=== PATIENT | male | born 1980 | race Caucasian/White ===

== ENCOUNTER 2022-01-22 11:51 | Inpatient (IN) ==
[2022-01-22] MEDS ORDERED: SODIUM CHLORIDE 0.9% 1,000 ML IV STA (12:40)
[2022-01-22] MEDS ORDERED: ONDANSETRON 4 MG/2 ML VIAL IV STA (12:40)
[2022-01-22 13:16] LABS: Basophils % 0.4 % (0.0-0.8); Eosinophils # 0.1 10*3/uL (0.0-0.87); Hemoglobin 14.4 GM/DL (14.0-18.0); Monocytes % 12.1 % (1.7-12.7); White Blood Count 7.4 T/CUMM (4-12)
[2022-01-22 13:35] LABS: Albumin 2.8 G/DL (3.4-5.0); Bilirubin,Total 0.9 MG/DL (0.20-1.00); Calcium 8.3 MG/DL (8.5-10.1); Osmolality,Calculated 270.8 MOS/KG (273-304); Potassium 3.2 MMOL/L (3.5-5.1); Total Protein 6.7 G/DL (6.4-8.2)
[2022-01-22 14:16] LABS: Glucose,Urine (UA) 250 mg/dL (Negative); Ketones,Urine Negative (Negative); Mucus,Urine Occasional /LPF (Occasional); Nitrite,Urine Negative (Negative); Protein,Urine Negative; RBC,Urine 2 /HPF (0-4); Squamous Epithelial Cell,Urine Occasional /HPF (0-10); Urine Appearance Clear (Clear); Urine Color Yellow (Yellow)
[2022-01-22 14:17] LABS: Bilirubin,Urine Negative (Negative); Blood, Urine Trace mg/dL (Negative); Urine Urobilinogen > 8.0 EU/DL (<2.0)
[2022-01-22 14:23] LABS: Barbiturates Screen,Urine Negative (Negative); Benzodiazepines Screen,Urine Negative (Negative); Cannabinoid Screen,Urine Negative (Negative); Opiate Screen,Urine Positive (Negative); Phencyclidine Screen,Urine Negative (Negative)
[2022-01-22 14:45] LABS: Eosinophils % 0.8 % (0.00-10.9); Hematocrit 42.7 VOL% (42.0-52.0); Immature Granulocytes % 0.3 %; Immature Granulocytes Absolute 0.02 #; Lymphocytes # 1.5 10*3/uL (1.4-4.0); Lymphocytes % 20.5 % (21.2-54.2); Mean Corpuscular HGB Conc 33.7 GM/DL (32-36); Mean Corpuscular Volume 90.3 FL (87-102); Mean Platelet Volume 12.4 FL (9.6-12.0); Neutrophils % 65.9 % (38.7-73.9); Platelet Count 197 T/CUMM (130-400); Red Blood Count 4.73 MC/CUMM (3.8-5.5); Red Cell Distribution Width 12.3 % (9.3-17.3)
[2022-01-22] MEDS ORDERED: DOCUSATE SODIUM 100 MG CAPSULE PO PRN (17:21)
[2022-01-22] MEDS ORDERED: ONDANSETRON 4 MG/2 ML VIAL IV PRN (17:21)
[2022-01-22] MEDS ORDERED: hydrALAZINE 20 MG/1 ML VIAL IV PRN (17:21)
[2022-01-22] MEDS ORDERED: MORPHINE 2 MG/1 ML SYRINGE IV PRN (17:21)
[2022-01-22] MEDS ORDERED: ALBUTEROL 2.5 MG/3 ML NEB RESP TX PRN (17:21)
[2022-01-22] MEDS ORDERED: GLUCAGON 1 MG VIAL IM PRN (17:21)
[2022-01-22] MEDS ORDERED: ACETAMINOPHEN 325 MG TABLET PO PRN (17:21)
[2022-01-22] MEDS ORDERED: NICOTINE 21 MG/24 HR PATCH TRANSDERM PRN (17:26)
[2022-01-22] MEDS ORDERED: POTASSIUM CHLORIDE INJ 20 MEQ in SODIUM CHLORIDE 0.9% 1,000 ML IV SCH (17:30)
[2022-01-22] MEDS ORDERED: DEXTROSE 10% 250 ML BAG IV PRN (17:31)
[2022-01-22] MEDS ORDERED: POTASSIUM CHLORIDE 20 MEQ TABLET PO PRN (17:32)
[2022-01-22] MEDS: amLODIPine 10 MG TABLET PO SCH (17:44)
[2022-01-22] MEDS: DEXT 5% NACL 0.45% KCL 20 MEQ 20 MEQ/1,000 ML BAG IV SCH (18:10)
[2022-01-23] MEDS: DEXT 5% NACL 0.45% KCL 20 MEQ 20 MEQ/1,000 ML BAG IV SCH ×2 (04:12→15:07)
[2022-01-23 05:54] LABS: Basophils % 0.6 % (0.0-0.8); Eosinophils # 0.1 10*3/uL (0.0-0.87); Eosinophils % 1.9 % (0.00-10.9); Hematocrit 43.3 VOL% (42.0-52.0); Hemoglobin 14.5 GM/DL (14.0-18.0); Immature Granulocytes % 0.2 %; Immature Granulocytes Absolute 0.01 #; Lymphocytes # 1.7 10*3/uL (1.4-4.0); Lymphocytes % 32.6 % (21.2-54.2); Mean Corpuscular HGB Conc 33.5 GM/DL (32-36); Mean Corpuscular Volume 90.6 FL (87-102); Mean Platelet Volume 11.9 FL (9.6-12.0); Neutrophils % 48.7 % (38.7-73.9); Platelet Count 193 T/CUMM (130-400); Red Blood Count 4.78 MC/CUMM (3.8-5.5); Red Cell Distribution Width 12.4 % (9.3-17.3); White Blood Count 5.2 T/CUMM (4-12)
[2022-01-23 06:25] LABS: Eosinophils 4 % (0-10); Hypochromia 1+; Lymphocytes 25 % (20-55); Segmented Neutrophils 52 % (50-85); Total Cells Counted 100
[2022-01-23 06:26] LABS: Albumin 2.5 G/DL (3.4-5.0); Calcium 8.5 MG/DL (8.5-10.1); Microcytosis 1+; Osmolality,Calculated 269.8 MOS/KG (273-304); Platelet Estimate Adequate; Potassium 3.4 MMOL/L (3.5-5.1); Risk Ratio 4.65; Thyroid Stimulating Hormone 2.99 uIU/ml (0.358-3.74); Total Protein 6.6 G/DL (6.4-8.2); VLDL Cholesterol 14.4 MG/DL
[2022-01-23] MEDS ORDERED: PANTOPRAZOLE 40 MG TABLET PO SCH (09:00)
[2022-01-23] MEDS: amLODIPine 10 MG TABLET PO SCH (09:20)
[2022-01-23] MEDS ORDERED: VANCOMYCIN INJ 1,750 MG in SODIUM CHLORIDE 0.9% 500 ML IV SCH (13:00)
[2022-01-23 14:50] LABS: Hepatitis B Core IgM Quant 0.15 Index; Hepatitis B Surface Ag Quant < 0.10 Index; Hepatitis B Surface Ag Result Non-Reactive (NonReactive); Hepatitis C Virus Ab Quant 0.16 Index; Hepatitis C Virus Ab Result Non-Reactive (NonReactive)
[2022-01-23 16:30] VITALS: BP 141/85
[2022-01-25] MEDS ORDERED: LACTATED RINGERS 1,000 ML IV SCH (08:00)
== END 2022-01-23 17:02 | disposition left against medical advice (07) | DRG 392 ==
LOC: N.ED 11:51 → N.EDINP 11:51 → SUATTDRO 17:21 → N.5E 19:52 → UNDODISOB 01-23 17:02
PROVIDERS: ADMIT Internal Medicine; ATTEND Internal Medicine Geriatric Medicine